=== PATIENT | female | born 1960 | race Caucasian/White ===

== ENCOUNTER 2024-11-17 08:00 | Outpatient (CLI) | payer BC | END 2024-11-17 08:01 | disposition home or self-care (01) | LOC: CSHULT 08:00 | PROVIDERS: ATTEND Family Medicine | DX: R74.8 Abnormal levels of other serum enzymes (principal); K83.8 Other specified diseases of biliary tract; K76.0 Fatty (change of) liver, not elsewhere classified | CPT/HCPCS: 76705 ==